=== PATIENT | male | born 1995 | race Two or more races ===

== ENCOUNTER 2016-10-23 04:11 | Emergency (ER) | payer MEDICAID ==
[~2016-10-23] VITALS: Ht 193 cm; Wt 89.8 kg
[2016-10-23 04:30] LABS: Urine RBC None Seen /hpf (0 - 3)
[2016-10-23 04:42] LABS: Basophils # (auto) 0 uL; CONDITION Y; Eosinophils # (auto) 0.1 uL; Eosinophils % (auto) 0.5 % (0.0-7.0); Hematocrit 46.6 % (41.0-53.0); Hemoglobin 15.8 g/dL (13.5-17.5); Lymphocytes # (auto) 3.5 uL; Mean Corpuscular Hemoglobin 31.4 pg (28.0-32.0); Mean Corpuscular Volume 92.3 fL (80.0-100.0); Mean Platelet Volume 8.2 fL (7.4-10.4); Monocytes # (auto) 0.9 uL; Monocytes % (auto) 6.1 % (0.0-12.0); Neutrophils # (auto) 9.6 uL; Neutrophils % (auto) 68.4 % (37.0-80.0); Platelet Count (auto) 314 10^3/uL (140-450); Red Cell Distribution Width 13.2 % (11.6-16.0); White Blood Cell 14.1 10^3/uL (4.4-10.8)
[2016-10-23 04:47] LABS: Urine Bilirubin Negative (Negative); Urine Blood Negative /uL (Negative); Urine Color Yellow (Yellow); Urine Glucose Normal (Normal); Urine Ketone Negative (Negative); Urine Mucus FEW (None Seen); Urine Nitrite Negative (Negative); Urine Squamous Epithelial Cell FEW /hpf (<5)
[2016-10-23 05:06] LABS: Albumin 4.7 g/dL (3.4-5.0); Blood Urea Nitrogen 15 mg/dL (7-18); Chloride 102 mmol/L (98-107); Potassium 3.9 mmol/L (3.5-5.1); Sodium 141 mmol/L (136-145)
[2016-10-23 05:11] LABS: Anion Gap 11 (5-15); Aspartate Aminotransferase 21 U/L (15-37); BUN/Creatinine Ratio 17.6; Calcium 9.3 mg/dL (8.5-10.1); Carbon Dioxide 28 mmol/L (21-32); GFR African American 148 mL/min; GFR Non-African American 122 mL/min; Glucose 99 mg/dL (74-106)
[2016-10-23 05:15] LABS: Alkaline Phosphatase 104 U/L (45-117); Total Protein 7.7 g/dL (6.4-8.2)
[2016-10-23 08:25] VITALS: BP 129/68
== END 2016-10-23 08:50 | disposition home or self-care (01) ==
LOC: ER 04:12
DX: R07.9 Chest pain, unspecified (principal); F12.10 Cannabis abuse, uncomplicated; F14.10 Cocaine abuse, uncomplicated
CPT/HCPCS: 36415; 80053; 80307; 81001; 84484; 85025; 93005

== ENCOUNTER 2019-10-19 20:38 | Emergency (ER) | payer MEDICAID ==
[~2019-10-19] VITALS: Ht 188 cm; Wt 99.8 kg
[2019-10-19] MEDS ORDERED: MORPHINE SULF INJ 2 MG/ML SYRINGE 1ML IV ONE (22:00)
[2019-10-19] MEDS ORDERED: ONDANSETRON HCL 4 MG/2 ML VIAL IV ONE (22:00)
[2019-10-20 03:04] VITALS: BP 128/73
[2019-10-20] MEDS ORDERED: LIDOCAINE 1% HCL (LOCAL ANESTH.) INJ 20ML MDV IJ ONE ×2 (03:30→05:00)
[2019-10-20] MEDS ORDERED: LIDOCAINE 1% HCL (LOCAL ANESTH.) INJ 20ML MDV ONE (03:31)
[2019-10-20] MEDS ORDERED: cefTRIAXone W LIDOCAINE 1 GM IM IM ONE (04:15)
[2019-10-20] MEDS ORDERED: TETANUS-DIPTH-ACEL PERTUSSIS 0.5ML SYR Tdap IM ONE (04:30)
[2019-10-20] MEDS ORDERED: cefTRIAXone SOD 1,000 MG VL IM ONE (04:30)
== END 2019-10-20 05:26 | disposition home or self-care (01) ==
LOC: ER 20:38
DX: S62.630B Displaced fracture of distal phalanx of right index finger, initial encounter for open fracture (principal); S52.92XA Unspecified fracture of left forearm, initial encounter for closed fracture; W26.8XXA Contact with other sharp object(s), not elsewhere classified, initial encounter; Y93.89 Activity, other specified; Y92.89 Other specified places as the place of occurrence of the external cause; Y99.8 Other external cause status
CPT/HCPCS: 73100; 73120; 90471; 90715; 96372; 96374; 96375; 99285; J0696; J2001; J2270; J2405

== ENCOUNTER 2023-08-19 11:53 | Emergency (ER) | payer MEDICAID ==
[~2023-08-19] VITALS: Ht 188 cm; Wt 112.0 kg
[2023-08-19 11:54] VITALS: BP 134/82; RESP 20; O2SAT 98
[2023-08-19 12:15] LABS: Urine Bacteria None Seen /hpf (None Seen)
[2023-08-19 12:35] LABS: Amphetamine Screen, Urine Neg (NEGATIVE); Barbiturate Scree,Urine Neg (NEGATIVE); Benzodiazephine Screen, Urine Pos (NEGATIVE); Cannabinoid Screen, Urine Pos (NEGATIVE); Cocaine Screen, Urine Pos (NEGATIVE); Opiate Scree,Urine Neg (NEGATIVE); Phencyclidine Screen, Urine Neg (NEGATIVE)
[2023-08-19 12:43] LABS: Urine Blood Negative /uL (Negative); Urine Clarity Clear (Clear); Urine Color Yellow (Yellow); Urine Mucus FEW (None Seen); Urine Protein, UAD TRACE (Negative); Urine Specific Gravity 1.036 (1.001-1.035); Urine Urobilinogen Normal (Negative); Urine WBC 1 /hpf (0 - 3)
[2023-08-19 12:55] VITALS: PULSE 67
[2023-08-19 13:16] LABS: Basophils # (auto) 0.2 10 ^3/uL (0-0.2); Basophils % (auto) 1.6 % (0.0-2.0); Eosinophils # (auto) 0.2 10 ^3/uL (0-0.8); Eosinophils % (auto) 1.6 % (0.0-7.0); Hematocrit 45.6 % (41.0-53.0); Hemoglobin 15.3 g/dL (13.5-17.5); Lymphocytes # (auto) 1.5 10 ^3/uL (0.4-5.4); Lymphocytes % (auto) 15.2 % (10.0-50.0); Mean Corpuscular Hemoglobin 30.4 pg (28.0-32.0); Mean Corpuscular Hgb Conc. 33.5 g/dL (32.0-36.0); Mean Corpuscular Volume 90.7 fL (80.0-100.0); Monocytes # (auto) 0.4 10 ^3/uL (0-1.3); Monocytes % (auto) 3.8 % (0.0-12.0); Neutrophils # (auto) 7.8 10 ^3/uL (1.6-8.6); Neutrophils % (auto) 77.8 % (37.0-80.0); Red Blood Cells 5.03 10^6/uL (4.5-5.90); Red Cell Distribution Width 12.8 % (11.8-14.3)
[2023-08-19 13:34] LABS: Alanine Aminotransferase 42 U/L (7-40); Alkaline Phosphatase 116 U/L (46-116); Anion Gap 5 (5-15); BUN/Creatinine Ratio 14.9 (10.0-20.0); Blood Urea Nitrogen 13 mg/dL (9-23); Calcium 11.4 mg/dL (8.7-10.4); Carbon Dioxide 29 mmol/L (20-30); Chloride 107 mmol/L (98-107); Glucose 112 mg/dL (74-106); Magnesium 1.8 mg/dL (1.6-2.6); Potassium 4.4 mmol/L (3.5-5.1); Sodium 141 mmol/L (136-145)
[2023-08-19 13:35] LABS: Albumin 4.8 g/dL (3.2-4.8); Aspartate Aminotransferase 24 U/L (13-40); Bilirubin, Total 0.4 mg/dL (0.2-1.0)
[2023-08-19 13:36] LABS: Total Protein 7.6 g/dL (5.7-8.2)
== END 2023-08-19 20:03 | disposition home or self-care (01) ==
LOC: ER 11:53
DX: R07.89 Other chest pain (principal); R00.2 Palpitations; R51.9 Headache, unspecified; F14.90 Cocaine use, unspecified, uncomplicated; Z79.899 Other long term (current) drug therapy
CPT/HCPCS: 36415; 71045; 80053; 80307; 81001; 83735; 84484; 85025; 93005